=== PATIENT | female | born 2005 | race African-American/Black ===

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

== ENCOUNTER 2023-05-05 20:51 | Emergency (ER) | payer BC, OTHER, SELFPAY ==
--- NOTE | ~2023-05-05 | CT_ITS ---
Non-contrast Head CT History: Head injury Technique: Axial non-contrast imaging of the brain was performed. Dose reduction technique was used on this scan by utilizing automated exposure control and iterative reconstruction technique. The dose -length product (DLP) was 605.33 mGy-cm. Findings: There is no evidence of intracranial hemorrhage, mass lesion, or acute infarct. Brain par enchyma appears normal. The ventricles and subarachnoid spaces are normal in size. The calvarium ap pears normal. The visualized paranasal sinuses and mastoid air cells are clear. Impression: No significant abnormality seen. Reviewed, dictated and finalized at location . Impression: No significant abnormality seen.
[2023-05-05 21:38] VITALS: BP 152/99; PULSE 79; RESP 16; TEMP 36.1; O2SAT 100
[2023-05-05 22:56] VITALS: BP 131/73; PULSE 83; RESP 18; TEMP 36.6; O2SAT 95
[2023-05-05 23:22] VITALS: BP 135/93; PULSE 78; RESP 16; TEMP 36.6; O2SAT 97
--- NOTE | 2023-05-05 23:47 | ED.HEATRA ---
HPI - Head Injury General Chief complaint: Head Injury <YUNG Guajardo Last Filed: 05/06/23 02:46> Stated complaint: i believe i have a concussion <YUNG Guajardo Last Filed: 05/06/23 02:46> Time Seen by Provider: 05/05/23 23:23 <YUNG Guajardo Last Filed: 05/06/23 02:46> History of Present Illness HPI Narrative: 17-year-old female with history of migraines reports for evaluation for headache and head injury x 1 week. Patient states a week ago, she was cleaning a shower and smacked the vertex of her scalp on the shower knob. States since then she has had a constant headache in the area that she hit her head, described as a pressure with associated photophobia. She also reports difficulty forming words since the injury and inability to think clearly. She states today, she slipped in the shower and hit her head on the shower door in the same spot. Since that incident, she has been having constant nausea, no vomiting. She denies vision changes, focal numbness or weakness, other injuries acquired from the fall including neck pain and back pain. No LOC. <YUNG Guajardo Last Filed: 05/06/23 02:46> Related Data Home medications: Home Medications Medication Instructions Recorded Confirmed No Home Medications 11/18/21 11/18/21 <YUNG Guajardo Last Filed: 05/06/23 02:46> Allergies/Adverse reactions: Allergies Allergy/AdvReac Type Severity Reaction Status Date / Time No Known Allergies Allergy Unknown Verified 05/05/23 21:41 <YUNG Guajardo Last Filed: 05/06/23 02:46> Review of Systems Review of Systems: CONSTITUTIONAL: Denies fever, chills EYES: Denies visual changes, redness, or discharge. ENT: Denies rhinorrhea, congestion, sore throat, or otalgia. CARDIOVASCULAR: Denies chest pain, palpitations, or edema. RESPIRATORY: Denies cough or dyspnea. GASTROINTESTINAL: Denies abdominal pain, nausea, vomiting, or diarrhea. GENITOURINARY: Denies dysuria or hematuria. SKIN: Denies rash or itching. MUSCULOSKELETAL: Denies back pain, joint pain, or myalgia. NEUROLOGIC: See HPI PSYCHIATRIC: Denies anxiety or depression. <Virgie Hubbard PA-C - Last Filed: 05/06/23 02:46> [facility] Past Medical History Medical History: Medical History No active medical problems <Virgie Hubbard PA-C - Last Filed: 05/06/23 02:46> Surgical History Surgical History: Surgical History History of skin graft 2013 left leg <Virgie Hubbard PA-C - Last Filed: 05/06/23 02:46> Family History Family History: Family History Mother Gallbladder disease Grandparent Gallbladder disease <Virgie Hubbard PA-C - Last Filed: 05/06/23 02:46> Social History Social History: Social History Smoking status: Never smoker Alcohol intake: never Living arrangements: with family Occupation/Education: student <Virgie Hubbard PA-C - Last Filed: 05/06/23 02:46> Exam Narrative: GENERAL: Well-appearing, in no acute distress. Patient resting comfortably in exam bed. She is pleasant and conversational. HEAD: Normocephalic. No hematomas, lacerations or abrasions to scalp EYES: PERRLA, EOMI ENT: Nares clear. Mucous membranes moist. Oropharynx without tonsillar hypertrophy exudate or other lesions. NECK: Supple. No midline cervical spinous tenderness, step-offs or deformities. No nuchal rigidity. CHEST: No respiratory distress. Clear to auscultation, no adventitious breath sounds. HEART: Regular rate and rhythm. No murmur heard. Normal peripheral pulses. EXTREMITIES: Normal range of motion. No edema. SKIN: Warm, dry, no rash. NEURO: No focal deficits. Alert and oriented x3. Cranial nerv
[2023-05-06] MEDS: KETOROLAC 30 MG/ML VIAL (*BKC) IV PUSH (00:09)
[2023-05-06] MEDS: diphenhydrAMINE HCl INJ 50 MG/ML VIAL 25 MG IV PUSH (00:09)
[2023-05-06] MEDS: PROCHLORPERAZINE EDISYLATE 10 MG/2 ML VIAL IV PUSH (00:09)
[2023-05-06 01:52] VITALS: BP 125/65; PULSE 81; RESP 16; O2SAT 100
== END 2023-05-06 02:00 | disposition home or self-care (01) ==
PROVIDERS: Emergency Provider Physician Assistant
DX: S09.90XA Unspecified injury of head, initial encounter (principal); W22.09XA Striking against other stationary object, initial encounter
CPT/HCPCS: 70450; 81025; 96374; 96375; 99284; J0780; J1200; J1885

== ENCOUNTER 2023-07-08 12:14 | Emergency (ER) | payer BC, OTHER, SELFPAY ==
[2023-07-08 12:16] VITALS: BP 132/85; PULSE 103; RESP 20; TEMP 36.4; O2SAT 97
--- NOTE | 2023-07-08 12:26 | ED.URI ---
HPI - URI/Sore Throat General Chief Complaint: Upper Respiratory Infection Stated Complaint: I think I have covid Time Seen by Provider: 07/08/23 12:24 History of Present Illness HPI Narrative: Patient is a healthy 17-year-old female here with upper respiratory symptoms for the last 5 days. She states that on Thursday evening she began having some nasal congestion. She notes that she has had worsening sinus drainage and nasal congestion accompanied by hot flashes, chills, diarrhea. She notes some mild shortness of breath that seems to relieve after she blows her nose or uses nasal spray. She denies any cough or exertional dyspnea. She denies any leg swelling or history of PE/DVT. She notes that she took a home COVID test which was faintly positive this morning and she cooled online which recommended she come into the emergency department for evaluation. She has been taking DayQuil and a nasal spray at home with some mild relief of symptoms. Has not been using any motrin or acetaminophen. Related Data Home Medications Medication Instructions Recorded Confirmed No Home Medications 11/18/21 11/18/21 Allergies Allergy/AdvReac Type Severity Reaction Status Date / Time No Known Allergies Allergy Unknown Verified 07/08/23 12:14 Review of Systems Review of Systems: All systems reviewed & are unremarkable except as noted in HPI and below PMFSH Past Medical History Medical History No active medical problems Surgical History Surgical History History of skin graft 2013 left leg Family History Family History Mother Gallbladder disease Grandparent Gallbladder disease Social History Social History Smoking status: Never smoker Alcohol intake: never Living arrangements: with family Occupation/Education: student Exam Narrative: GENERAL: Well-appearing, well-nourished, and in no acute distress. HEAD: Normocephalic, atraumatic. EYES: PERRLA and EOMI. ENT: Nares clear. Mucous membranes moist. Posterior pharyngeal erythema without edema or exudates. NECK: Supple. CHEST: Clear to auscultation. No respiratory distress. HEART: Regular rate and rhythm. Normal peripheral pulses. ABDOMEN: Soft, nontender, nondistended. EXTREMITIES: Normal range of motion. No edema. SKIN: Warm, dry, no rash. NEURO: No focal deficits. Alert and oriented x3. PSYCH: Normal mood and affect. Course Course Emergency Course: Chart review performed. Patient here concerns for covid. Triage vitals show mild tachycardia, otherwise normal. Patient seen evaluated, in no acute distress, nontoxic-appearing. History and exam most consistent with viral syndrome which could include but is not limited to RSV, influenza, COVID-19. No current indications for further imaging or lab work given most of her respiratory symptoms seem to be all upper respiratory and she has a normal exam otherwise. Will give tylenol for symptoms. Patient tested positive for COVID-19. Advised Tylenol, ibuprofen for symptoms. Advised of [facility] quarantine protocol. Provided work note. The results of pertinent diagnostic studies and exam findings were discussed. The patient?s provisional diagnosis and plan of care were discussed with the patient and present family. The patient and/or present family expressed understanding of the diagnosis and plan. The nurse was instructed to provide written instructions and appropriate follow-up information. The patient understands their need and responsibility to obtain additional follow-up as instructed. The risks of medications administered and prescribed were discussed with the patient and family present. Vital Signs Vital signs: Vital Signs Temperature 97.6 F 07/08/23 12:16 Pu
[2023-07-08] MEDS: ACETAMINOPHEN 500 MG TABLET 1000 MG PO (13:06)
[2023-07-08 13:40] LABS: Influenza A QL RT-PCR Negative (Negative); Influenza B QL RT-PCR Negative (Negative); RSV RNA, RT-PCR Negative (Negative); SARS-CoV-2 RNA PCR Positive (Negative)
== END 2023-07-08 13:52 | disposition home or self-care (01) ==
PROVIDERS: Emergency Provider Student in an Organized Health Care Education/Training Program
DX: U07.1 COVID-19 (principal); J06.9 Acute upper respiratory infection, unspecified
CPT/HCPCS: 87637; 99283; A9270

== ENCOUNTER 2024-05-04 22:41 | Emergency (ER) | payer OTHER, SELFPAY ==
--- NOTE | ~2024-05-04 | XR_ITS ---
Left ankle Technique: AP, oblique, and lateral views were obtained. Clinical History: Injury Findings: No acute fracture or dislocation is seen. Osseous alignment is anatomic. Ankle mortise and other visualized joint spaces are preserved. Soft tissues are otherwise unremarkable. Impression: Unremarkable left ankle. Reviewed, dictated and finalized at location . Impression: Unremarkable left ankle.
[2024-05-04 22:43] VITALS: BP 146/90; PULSE 86; RESP 15; TEMP 36.6; O2SAT 99
[2024-05-05 02:40] VITALS: BP 140/88; PULSE 82; RESP 16; O2SAT 100
--- NOTE | 2024-05-05 04:09 | ED.GENADULT ---
HPI - General Adult General Chief complaint: Extremity Injury, Lower Stated complaint: achilles pain-left Time Seen by Provider: 05/05/24 04:01 History of Present Illness HPI narrative: Patient is a 18-year-old female presents emergency department with chief complaint of left ankle pain. Patient reports that few days ago she started having pain in the left ankle in the medial aspect of it reports that she tripped over a Tote and has had pain since then the patient reports that her urgent care provider told her that she may having issues with her Achilles the patient was given steroids at that time is had any improvement. Related Data Allergies Allergy/AdvReac Type Severity Reaction Status Date / Time No Known Allergies Allergy Unknown Verified 05/05/24 02:43 Review of Systems Review of Systems: A 10 system review of systems was completed on the patient and is negative except for what is stated in the HPI. Nursing and ancillary documentation was reviewed. [facility] Past Medical History Medical History No active medical problems Surgical History Surgical History History of skin graft 2013 left leg Family History Family History Mother Gallbladder disease Grandparent Gallbladder disease Social History Social History Smoking status: Never smoker Alcohol intake: never Living arrangements: with family Occupation/Education: student Exam Narrative: GENERAL: Well-appearing, well-nourished, and in no acute distress. HEAD: Normocephalic, atraumatic. EYES: PERRLA and EOMI. ENT: Nares clear, no rhinorrhea or epistaxis. Mucous membranes moist. NECK: Supple. CHEST: Clear to auscultation. No respiratory distress. HEART: Regular rate and rhythm. No murmur heard. Normal peripheral pulses. ABDOMEN: Soft, nontender, nondistended, normal active bowel sounds. EXTREMITIES: Normal range of motion tenderness to palpation on the medial aspect of the left ankle. There is no deformity no bruising there is negative Banks test. No edema. SKIN: Warm, dry, no rash. NEURO: No focal deficits. Alert and oriented x3. PSYCH: Normal mood and affect. Course Vital Signs Vital signs: Vital Signs Temperature 36.6 C 05/04/24 22:43 Pulse Rate 86 05/04/24 22:43 Respiratory Rate 15 05/04/24 22:43 Blood Pressure 146/90 H 05/04/24 22:43 Pulse Oximetry 99 05/04/24 22:43 Oxygen Delivery Room Air 05/04/24 22:43 Temperature 36.6 C 05/04/24 22:43 Pulse Rate 86 05/04/24 22:43 Respiratory Rate 15 05/04/24 22:43 Blood Pressure 146/90 H 05/04/24 22:43 Pulse Oximetry 99 05/04/24 22:43 Oxygen Delivery Room Air 05/04/24 22:43 Medical Decision Making MDM Narrative Medical decision making narrative: Differential diagnosis includes fracture, sprain X-ray showed no evidence of fracture Patient was placed in Woody wrap given a prescription for anti-inflammatories and placed on crutches Vital Signs Vital Signs: Vital Signs Temperature 36.6 C 05/04/24 22:43 Pulse Rate 86 05/04/24 22:43 Respiratory Rate 15 05/04/24 22:43 Blood Pressure 146/90 H 05/04/24 22:43 Pulse Oximetry 99 05/04/24 22:43 Oxygen Delivery Room Air 05/04/24 22:43 Temperature 36.6 C 05/04/24 22:43 Pulse Rate 86 05/04/24 22:43 Respiratory Rate 15 05/04/24 22:43 Blood Pressure 146/90 H 05/04/24 22:43 Pulse Oximetry 99 05/04/24 22:43 Oxygen Delivery Room Air 05/04/24 22:43 Discharge Plan Discharge Clinical Impression: Left ankle sprain Patient Disposition: Home, Self-Care Condition: Stable Instructions: Antibiotic Form, Ankle Sprain (ED), Crutch Instructions (ED) Prescriptions: New diclofenac potassium 50 mg ta
== END 2024-05-05 05:15 | disposition home or self-care (01) ==
PROVIDERS: Emergency Provider Emergency Medicine
DX: S93.402A Sprain of unspecified ligament of left ankle, initial encounter (principal); W22.8XXA Striking against or struck by other objects, initial encounter
CPT/HCPCS: 73610; 99283